=== PATIENT | female | born 1960 ===

== ENCOUNTER 2018-09-08 14:03 | Emergency (ER) | payer MEDICAID ==
[2018-09-08 14:25] VITALS: BP 151/76; PULSE 75; RESP 18; TEMP 98.3; O2SAT 98
--- NOTE | 2018-09-08 15:02 | ED PDOC ---
Upper Extremity Pain/Injury Time Seen by Provider: 09/08/18 14:45 Chief Complaint (Nursing): Upper Extremity Problem/Injury Chief Complaint (Provider): Right Shoulder Pain History Per: Patient History/Exam Limitations: no limitations Onset/Duration Of Symptoms: Days (x1 week) Current Symptoms Are (Timing): Still Present Additional Complaint(s): 57 year old female presents to the ED for evaluation of right shoulder pain for the past week. As per patient's daughter, pt is unable to sleep lying down at night, and is in constant pain, unable to lift arm without pain. She was seen on 09/04 at [facility], [place] and diagnosed via XR with calcific tendonitis of the right shoulder, but has had increased pain since. Denies other complaints. PMD: Donovan Past Medical History Reviewed: Historical Data, Nursing Documentation, Vital Signs Vital Signs: Last Vital Signs Temp 98.3 F 09/08/18 14:23 Pulse 75 09/08/18 14:23 Resp 18 09/08/18 14:23 BP 151/76 H 09/08/18 14:23 Pulse Ox 98 09/08/18 14:23 - Medical History PMH: Hypothyroidism - Surgical History Surgical History: - Family History Family History: States: Unknown Family Hx - Social History Current smoker - smoking cessation education provided: Yes (light) Alcohol: None Drugs: Denies - Immunization History Hx Tetanus Toxoid Vaccination: No Hx Influenza Vaccination: No Hx Pneumococcal Vaccination: No - Home Medications Home Medications: Ambulatory Orders Medication Instructions Recorded Meloxicam 15 mg PO DAILY #14 tablet 09/04/18 Cyclobenzaprine [Flexeril] 10 mg PO TID #27 tab 09/08/18 Diclofenac Potassium 50 mg PO BID #20 tablet 09/08/18 Diclofenac Sodium [Voltaren] 1 gm TP TID #100 gm 09/08/18 - Allergies Allergies/Adverse Reactions: Allergies Allergy/AdvReac Type Severity Reaction Status Date / Time No Known Allergies Allergy Verified 09/04/18 11:59 Review of Systems ROS Statement: Except As Marked, All Systems Reviewed And Found Negative Musculoskeletal: Positive for: Shoulder Pain (right) Physical Exam - Reviewed Nursing Documentation Reviewed: Yes Vital Signs Reviewed: Yes - Physical Exam Appears: Positive for: Non-toxic, No Acute Distress Head Exam: Positive for: NORMOCEPHALIC Skin: Positive for: Warm, Dry Eye Exam: Positive for: Normal appearance Neck: Positive for: Supple Cardiovascular/Chest: Positive for: Regular Rate, Rhythm Respiratory: Positive for: Normal Breath Sounds. Negative for: Respiratory Distress Extremity: Positive for: Tenderness (tenderness over right AC joint and to right anterior shoulder), Other (positive wilburn-abel of right shoulder). Negative for: Normal ROM (decreased ROM of right shoulder secondary to pain) Neurologic/Psych: Positive for: Alert, Oriented (x3), Gait (steady). Negative for: Motor/Sensory Deficits - ECG O2 Sat by Pulse Oximetry: 98 (RA) Pulse Ox Interpretation: Normal Medical Decision Making Medical Decision Making: Time: 1500 Initial Impression: calcific tendonitis Initial Plan: --Toradol 60mg IM --Flexeril 10mg PO --Tylenol 650mg PO Scribe Attestation: Documented by Britney Toribio, acting as a scribe for Shahbaz Guaman PA-C. Provider Scribe Attestation: All medical record entries made by the Scribe were at my direction and personally dictated by me. I have reviewed the chart and agree that the record accurately reflects my personal performance of the history, physical exam, medical decision making, and the department course for this patient. I have also personally directed, reviewed, and agree with the discharge instructions and disposition. Disposition - Clinical Impression Clinical Impression: Calcific tendinitis - Patient ED Disposition Is Patient to be Admitted: No Doctor Will See Patient In The: Hospital Counseled Patient/Family Regarding: Diagnosis, Need For Followup, Rx Given - Disposition Referrals: [facility] [place] [Outside] Disposition: Routine/Home Disposition Time: 16:13 Condition: IMPROVED Prescriptions: Cyclobenzaprine [Flexeril] 10 mg PO TID #27 tab Diclofenac Potassium 50 mg PO BID #20 tablet Diclofenac Sodium [Voltaren] 1 gm TP TID #100 gm Instructions: Tendonitis (DC), Tendinopathy (DC) Forms: [facility] (Maltese), [facility] (Estonian), [facility] ED School/Work Excuse Print Language: BULGARIAN
== END 2018-09-08 16:21 | disposition home or self-care (01) ==
LOC: H.ER 14:03
DX: M75.31 Calcific tendinitis of right shoulder (principal); E03.9 Hypothyroidism, unspecified
CPT/HCPCS: 96372; 99283; J1885